=== PATIENT | female | born 1995 | race Caucasian/White ===

== ENCOUNTER 2018-08-25 06:52 | Emergency (ER) | payer MEDICAID ==
[~2018-08-25] VITALS: Ht 170.2 cm; Wt 79.5 kg
[2018-08-25 07:04] VITALS: BP 121/65; TEMP 98.8
[2018-08-25] MEDS ORDERED: BACTRIM DS 8001 TAB PO (08:24)
[2018-08-25] MEDS ORDERED: NORCO 325 MG-51 TAB PO (08:24)
[2018-08-25 08:41] VITALS: PULSE 90
== END 2018-08-25 08:42 | disposition home or self-care (01) ==
LOC: COL.ER 06:52
DX: L05.01 Pilonidal cyst with abscess (principal); Z88.0 Allergy status to penicillin